=== PATIENT | female | born 1960 | race Caucasian/White ===

== ENCOUNTER 2023-11-21 15:26 | Emergency (ER) | payer BC, SELFPAY ==
--- NOTE | ~2023-11-21 | CT_ITS ---
EXAMINATION: CT abdomen pelvis w con DATE: 11/21/2023 17:03 INDICATION: Low abdominal pain. Nausea. TECHNIQUE: Computed tomography (CT) of the abdomen and pelvis was performed with 100 mL Omnipaque 350 intravenous contrast. Automated exposure control and iterative reconstruction technique were employe d. The dose-length product was 1595.25 mGy-cm. COMPARISON: None. FINDINGS: The visualized portions of the lung bases demonstrate mild atelectasis. There is mild bronc hiectasis bilaterally. A calcified left lung nodule is consistent with old granulomatous disease. No pleural effusion. The heart size is normal. There are coronary artery calcifications. No pericardial effusion. There is a small hiatal hernia. There are surgical changes of the stomach. The gallbladder is absent. There is moderate intrahepatic and extra hepatic biliary duct dilatation, likely not clini césar significant given the normal alkaline phosphatase and total bilirubin. Calcifications in the sp irineo are consistent with old granulomatous disease. The pancreas and adrenal glands are normal. There are cysts in the kidneys measuring up to 13 mm on the left. There is a 5 mm stone in right kidney. T here are 3 mm and 2 mm stones in left kidney. There are scattered diverticula in the colon. There is fat stranding around sigmoid colon, consistent with diverticulitis. There are no dilated loops of bow el. The appendix is not visualized. There are no pathologically enlarged lymph nodes. There is no lisa e intraperitoneal fluid. There are changes of anterior and posterior fusion procedures from L4 to S1. IMPRESSION: 1. Mild sigmoid diverticulitis. No perforation or abscess. Reviewed, dictated and finalized at location E. [facility]
[2023-11-21 15:48] VITALS: BP 183/76; PULSE 98; RESP 20; TEMP 36.6; O2SAT 97
[2023-11-21 16:18] LABS: Basophils Absolute Auto 0.1 K/mm3 (0.0-0.1); Basophils Percent Auto 0.6 % (0.2-1.2); Eosinophils Absolute Auto 0.1 K/mm3 (0-0.3); Eosinophils Percent Auto 1.7 % (0-4.4); Hematocrit 35.6 % (37.0-47.0); Hemoglobin 9.9 g/dL (12.0-15.0); Immature Granulocyte Absolute 0.02 K/mm3 (0.00-0.031); Immature Granulocyte Percent A 0.2 % (0-0.5); Lymphocytes Absolute Auto 2.36 K/mm3 (0.9-3.2); Lymphocytes Percent Auto 28.7 % (18.3-44.2); Mean Corpuscular HGB Conc 27.8 g/dl (32-36); Mean Corpuscular Hemoglobin 24.5 pg (26-34); Mean Corpuscular Volume 88.1 fl (80-100); Mean Platelet Volume 9.7 fl (7.4-10.4); Monocytes Absolute Auto 0.7 K/mm3 (0.1-0.6); Monocytes Percent Auto 8.5 % (2.6-8.5); Neutrophils Percent Auto 60.3 % (45.5-73.1); Platelet Count Result 304 k/mm3 (150-375); Red Blood Count 4.04 M/mm3 (4.2-5.4); Red Cell Distribution Width 15.8 % (11.5-14.5); White Blood Count 8.2 K/mm3 (4.5-10.0)
[2023-11-21 16:30] LABS: Alanine Aminotransferase 15 U/L (6-35); Albumin Level 4.4 g/dL (3.5-5.1); Alkaline Phosphatase 73 U/L (38-126); Anion Gap 9 mmol/L (8-16); Aspartate Amino Transferase 37 U/L (14-36); Bilirubin,Total 0.6 mg/dL (0.2-1.3); Blood Urea Nitrogen 11 mg/dL (7-17); Calcium 9.4 mg/dL (8.4-10.2); Carbon Dioxide 29 mmol/L (22-30); Chloride 103 mmol/L (98-107); Estimated CRCL calculation 100 ml/min; Estimated Glomerular Filt Rate > 60; Glucose 98 mg/dL (65-110); Lipase 20 U/L (23-300); Potassium 4.4 mmol/L (3.4-5.0); Sodium 141 mmol/L (137-145)
--- NOTE | 2023-11-21 16:33 | ED.ABDPAIN ---
HPI - Abdominal Pain General Chief Complaint: Abdominal Pain Stated Complaint: kidney stone Time Seen by Provider: 11/21/23 16:18 History of Present Illness HPI narrative: Patient is a 63-year-old female with a history of rheumatoid arthritis presenting with abdominal pain. Patient states that she has been having severe dysuria for the last 2 weeks. She saw her PCP Who started her on ciprofloxacin but then she had an allergic reaction. She was then started on Levaquin which she has been taking as prescribed. Patient continues to have severe lower abdominal pain so she was advised to come to the ER. States that the pain is so bad that she is nauseated and feels like she can not eat. No vomiting or diarrhea. Continues to have dysuria. No fevers, chest pain, shortness of breath. No further complaints. Related Data Allergies Allergy/AdvReac Type Severity Reaction Status Date / Time ciprofloxacin [From Cipro] Allergy Other Verified 11/21/23 15:54 nitrofurantoin Allergy Rash Verified 11/21/23 15:54 [From Macrobid] Sulfa (Sulfonamide Allergy Photosensit Verified 11/21/23 15:54 Antibiotics) ivity Review of Systems Review of Systems: All systems reviewed & are unremarkable except as noted in HPI and below Exam Narrative: GENERAL: Nontoxic, uncomfortable appearing, pleasant and cooperative HEAD: Normocephalic, atraumatic. EYES: PERRLA and EOMI. ENT: Mucous membranes moist. NECK: Supple. CHEST: Clear to auscultation. No respiratory distress. HEART: Regular rate and rhythm ABDOMEN: Soft, tender in bilateral lower quadrants as well as suprapubic region, no guarding or rebound EXTREMITIES: Normal range of motion. SKIN: Warm, dry, no rash. NEURO: Alert and oriented x3. PSYCH: Normal mood and affect. Course Vital Signs Vital signs: Vital Signs Temperature 98 F 11/21/23 15:48 Pulse Rate 98 11/21/23 15:48 Respiratory Rate 20 11/21/23 15:48 Blood Pressure 183/76 H 11/21/23 15:48 Pulse Oximetry 97 11/21/23 15:48 Oxygen Delivery Room Air 11/21/23 15:48 Temperature 98 F 11/21/23 15:48 Pulse Rate 90 11/21/23 19:59 Respiratory Rate 16 11/21/23 19:59 Blood Pressure 150/64 H 11/21/23 19:59 Pulse Oximetry 98 11/21/23 19:59 Oxygen Delivery Room Air 11/21/23 15:48 MDM - Abdominal Pain MDM Narrative Medical decision making narrative: 63-year-old female presenting with lower abdominal pain. Patient is hypertensive, otherwise vitals are within normal limits. Exam remarkable for the above. Blood work is unremarkable. Lactic acid is normal. UA with positive nitrites but no other acute abnormalities. Patient has several more doses of Levaquin left. CT abdomen pelvis with sigmoid diverticulitis. Patient given a dose of Augmentin and she is able to keep it down. She already takes oxycodone at home, advised she continue using this for pain control. Will send in for Zofran as well as a course of Augmentin. Patient is concerned about bladder spasms, will give her the number for Urology for follow-up. Also recommend PCP follow-up. Appropriate return precautions given. Discharged in stable condition. Differential Diagnosis Differential diagnosis: Likely abdominal pain, acute appendicitis, constipation, diverticulitis and pancreatitis Medical Records Attestation: I reviewed the patient's medical records. Lab Data Attestation: I reviewed the patient's lab results. 11/21/23 16:10 11/21/23 16:10 Labs: Lab Results 11/21/23 11/21/23 Range/Units 16:10 17:48 WBC 8.2 (4.5-10.0) K/mm3 RBC 4.04 L (4.2-5.4) M/mm3 Hgb 9.9 L (12.0-15.0) g/dL Hct 35.6 L (37.0-47.0) % MCV 88.1 (80-100) fl MCH 24.5 L (26-34) pg MCHC 27.8 L (32-36) g/dl RDW 15.8 H (11.5-14.5) % Plt Count 304 (150-375) k/mm3 MPV 9.7 (7.4-10.4) fl Immature Gran % (Auto) 0.2 (0-0.5) % Neut % (Auto) 60.3 (45.5-73.1) % Lymph % (Auto) 28.7
[2023-11-21 16:35] LABS: Appearance Urine Clear (Clear); Bacteria Urine None Seen /hpf; Bilirubin Urine Negative (Negative); Blood Urine Negative (Negative); Color Urine Dark Yellow (Yellow); Glucose Urine UA Negative (Negative); Ketones Urine Negative (Negative); Leukocyte Esterase Ur Trace LEU/UL (Negative); Need Manual Microscopic Reviewed; Nitrate Urine Positive (Negative); Non Pathogenic Casts 0-2; Protein Urine Negative (Negative); RBC Urine 0-2 /hpf (0-2); Specific Grav Ur 1.014 (1.001-1.035); Squamous Epithelial Cell Urine None seen /hpf (Few); WBC Urine 0-5 /hpf
[2023-11-21 16:42] LABS: Add Urine Microscopic? YES
[2023-11-21] MEDS: HYDROmorphone HCL INJ (*CRX) 1 MG/ML SYR IV PUSH ×2 (16:43→18:09)
[2023-11-21] MEDS: ONDANSETRON INJ 4 MG/2 ML VIAL IV PUSH ×2 (16:43→18:09)
[2023-11-21] MEDS: SODIUM CHLORIDE 0.9% IV 1,000 ML 999 ML IV CONT (16:43)
[2023-11-21 16:44] LABS: Platelet Estimate Adequate (Adequate); Schistocytes None Seen (NORMAL)
[2023-11-21 16:45] LABS: Anisocytosis 1+ (NORMAL); Hypochromasia 1+ (NORMAL)
--- NOTE | 2023-11-21 16:54 | PC.NURSE ---
Pt to CT scan via stretcher at this time.
[2023-11-21 17:18] VITALS: BP 172/60; PULSE 85; RESP 12; O2SAT 93
[2023-11-21 18:03] LABS: Lactic Acid Reflex 0.8 mmol/L (0.7-2.0)
[2023-11-21 18:12] VITALS: BP 188/87; PULSE 91; RESP 13; O2SAT 98
[2023-11-21] MEDS: AMOXICILLIN/CLAVULANATE K 875-125 MG TAB 1 TABLET PO (18:44)
[2023-11-21 19:59] VITALS: BP 150/64; PULSE 90; RESP 16; O2SAT 98
== END 2023-11-21 20:01 | disposition home or self-care (01) ==
PROVIDERS: Emergency Provider Emergency Medicine
DX: N39.0 Urinary tract infection, site not specified (principal); K57.32 Diverticulitis of large intestine without perforation or abscess without bleeding; M06.9 Rheumatoid arthritis, unspecified
CPT/HCPCS: 36415; 74177; 80053; 81001; 83605; 83690; 85025; 96361; 96374; 96375; 96376; 99284; A9270; J1170; J2405; J7030; Q9967